=== PATIENT | female | born 1965 | race Caucasian/White ===

== ENCOUNTER → 2020-08-29 15:56 | Outpatient (CLI) | payer OTHER, SELFPAY ==
--- NOTE | ~2020-08-29 | MM_ITS ---
EXAMINATION: MM screening fredis BI w aurelio HISTORY: Screening TECHNIQUE: Craniocaudal and mediolateral oblique 3-D tomosynthesis images were obtained and synthetic 2-D images were generated. CAD analysis was submitted and interpreted. COMPARISON: Comparison to multiple prior studies sequentially, with oldest reviewed study dated 02/2015. BREAST PARENCHYMAL COMPOSITION: There are scattered areas of fibroglandular density. FINDINGS: There is no evidence of suspicious mass, calcification, or architectural distortion to sugg est malignancy in either breast. There has been no suspicious interval change. IMPRESSION: 1. No mammographic evidence of malignancy. 2. Recommend routine screening mammography in one year. BI-RADS Category 1: Negative Reviewed, dictated and finalized at location A. [facility]
== END ==
PROVIDERS: PCP Internal Medicine; Visit Provider Obstetrics & Gynecology
DX: Z12.31 Encounter for screening mammogram for malignant neoplasm of breast (principal)
CPT/HCPCS: 77063; 77067

== ENCOUNTER 2020-12-29 13:48 | Emergency (ER) | payer OTHER, SELFPAY ==
[2020-12-29] VITALS (7 sets, daily range): BP systolic 128–156; BP diastolic 86–109; PULSE 114–150; RESP 22; TEMP 36.4–37.1; O2SAT 99–100
--- NOTE | ~2020-12-29 | US_ITS ---
EXAMINATION: US pelvic complete w TV DATE: 12/29/2020 15:12 INDICATION: Abnormal uterine bleeding TECHNIQUE: Multiple transabdominal and endovaginal sonographic images of the pelvis were obtained. COMPARISON: 05/17/2017 FINDINGS: The uterus measures 6.4 x 1.9 x 3.6 cm. The endometrial complex is not visualized. There ap pears to be an approximately 18.6 x 14.8 cm fibroid. The ovaries are not visualized however no adnexa l abnormality is seen. There is no free fluid in the pelvis. IMPRESSION: 1. 18.6 cm uterine mass, likely a large fibroid. Reviewed, dictated and finalized at location A. IANCE INSTALLER
--- NOTE | 2020-12-29 14:09 | ED.FEMALEGU ---
HPI - Female Genitourinary General Chief complaint: Vaginal Bleeding Stated complaint: vaginal bleeding Time Seen by Provider: 12/29/20 14:07 Source: patient Mode of arrival: ambulatory Limitations: no limitations History of Present Illness HPI Narrative: This is a 55-year-old female that presents to the emergency department for abnormal uterine bleeding. Reports she has known history of a large fibroid uterus. She gets the Depo shot every 3 months to help control her bleeding. Reports she had her shot 1 week ago and has had intermittent heavy bleeding since then. Her corporate quality manager is Dr. Bullock. Denies fever, chest pain, shortness of breath, pelvic pain, vomiting, or dysuria. Related Data Home Medications Medication Instructions Recorded Confirmed medroxyprogesterone 150 mg/mL 150 mg IM [id number] 01/17/20 11/07/20 intramuscular suspension calcium carbonate 200 mg calcium 200 mg PO DAILY tablet 03/17/20 11/07/20 (500 mg) chewable tablet ergocalciferol (vitamin D2) 1,250 1,250 mcg PO WEEKLY cap 05/03/20 11/07/20 mcg (50,000 unit) capsule Allergies Allergy/AdvReac Type Severity Reaction Status Date / Time cefaclor Allergy Unknown Rash Verified 12/29/20 14:05 Penicillins Allergy Unknown Rash Verified 12/29/20 14:05 Sulfa (Sulfonamide Allergy Unknown Rash Verified 12/29/20 14:05 Antibiotics) tetracycline Allergy Unknown Rash Verified 12/29/20 14:05 Review of Systems Review of Systems: Narrative: CONSTITUTIONAL: Denies fever CARDIOVASCULAR: Denies chest pain RESPIRATORY: Denies dyspnea. GASTROINTESTINAL: Denies abdominal pain, nausea, vomiting GENITOURINARY: Denies dysuria All systems reviewed & are unremarkable except as noted in HPI and below [facility] Past Medical History Medical History (Updated 12/29/20 @ 16:14 by Kristi Anderson PA-C) Allergies Fibroid tumor Headache History of asthma Surgical History Surgical History (Updated 03/17/20 @ 10:09 by Renetta Luther CMA) H/O laparoscopy 1985 History of tubal ligation 1998 Family History Family History (Updated 03/17/20 @ 10:10 by Renetta Luther CMA) Mother Prediabetes Father Hypertension Grandparent Diabetes mellitus Cerebrovascular accident Ulcer Social History Social History (Updated 01/17/20 @ 13:20 by Kami Aguilar [facility]) Smoking packs per day: 1 Smoking cigarettes per day: 20.0 Smoking status: Current every day smoker Second hand tobacco smoke exposure: No Alcohol intake: never Substance use: never Substance use type: does not use Gender identity (if verbalized by the patient): Female Exam Narrative: Exam Narrative: GENERAL: Well-appearing, obese, and in no acute distress. HEAD: Normocephalic, atraumatic. EYES: EOMI. ENT: Mucous membranes moist. Oropharynx without tonsillar hypertrophy exudate or other lesions. CHEST: Clear to auscultation. No respiratory distress. No wheezes rales or rhonchi HEART: Regular rate and rhythm. No murmur heard. Normal peripheral pulses. ABDOMEN: Large, fibroid uterus, nontender, normal active bowel sounds. EXTREMITIES: Normal range of motion. No edema. SKIN: Warm, dry, no rash. NEURO: No focal deficits. Alert and oriented x3. PSYCH: Normal mood and affect PELVIC: Normal external genitalia. No blood noted in the vaginal vault Course Consultations Consultation #1: Spoke with Dr. Bullock about patient and work-up. Patient is to follow-up in clinic. Date: 12/29/20 Time: 16:11 Vital Signs Vital signs: Vital Signs Temperature 98.7 F 12/29/20 14:00 Pulse Rate 150 H 12/29/20 14:00 Respiratory Rate 22 H 12/29/20 14:00 Blood Pressure 130/102 H 12/29/20 14:00 Pulse Oximetry 100 12/29/20 14:00 Temperature 98.7 F 12/29/20 14:00 Pulse Rate 134 H 12/29/20 14:33 Respiratory Rate 22 H 12/29/20 14:00 Blood Pressure 132/109 H 12/29/20 14:33 Pulse Oximetry 100 12/29/20 14:00 MDM - Female Genitourinary MDM Narrative Medical decision toro
[2020-12-29 14:20] LABS: Basophils Percent Auto 0.3 % (0.2-1.2); Eosinophils Absolute Auto 0.1 K/mm3 (0-0.3); Eosinophils Percent Auto 1.3 % (0-4.4); Hematocrit 34.6 % (37.0-47.0); Hemoglobin 10.8 g/dL (12.0-15.0); Immature Granulocyte Absolute 0.06 K/mm3 (0.00-0.031); Immature Granulocyte Percent A 0.6 % (0-0.5); Lymphocytes Absolute Auto 3.56 K/mm3 (0.9-3.2); Lymphocytes Percent Auto 34.8 % (18.3-44.2); Mean Corpuscular HGB Conc 31.2 g/dl (32-36); Mean Corpuscular Hemoglobin 25.4 pg (26-34); Mean Corpuscular Volume 81.4 fl (80-100); Mean Platelet Volume 8.7 fl (7.4-10.4); Monocytes Absolute Auto 0.6 K/mm3 (0.1-0.6); Monocytes Percent Auto 5.8 % (2.6-8.5); Neutrophils Absolute Auto 5.9 K/mm3 (1.3-6.7); Neutrophils Percent Auto 57.2 % (45.5-73.1); Platelet Count Result 419 k/mm3 (150-375); Red Blood Count 4.25 M/mm3 (4.2-5.4); White Blood Count 10.2 K/mm3 (4.5-10.0)
--- NOTE | 2020-12-29 14:25 | ECG_ITS ---
Measurements Intervals Mallory Rate: 126 P: 11 NJ: 104 QRS: -11 QRSD: 74 T: 2 QT: 304 QTc: 442 Interpretive Statements SINUS TACHYCARDIA WITH SHORT NJ INTERVAL LOW QRS VOLTAGE IN PRECORDIAL LEADS VOLTAGE CRITERIA FOR LVH BORDERLINE T WAVE ABNORMALITY- ANT/INF LEADS BASELINE ARTIFACT- I, II, III, AVR, AVL, AVF ABNORMAL ECG Electronically Signed On 12-29-2020 14:51:11 INSTRUCTOR WARPER by Dagoberto Herrera D.O.
[2020-12-29 14:28] LABS: INR 0.9; Prothrombin Time 13.1 Seconds (11.1-14.7)
[2020-12-29 14:29] LABS: Partial Thromboplastin Time 24.1 SECONDS (22.3-36.8)
[2020-12-29 14:37] LABS: Anion Gap 3 mmol/L (8-16); Blood Urea Nitrogen 11 mg/dL (7-17); Calcium 10.7 mg/dL (8.4-10.2); Carbon Dioxide 24 mmol/L (22-30); Chloride 110 mmol/L (98-107); Estimated CRCL calculation 71 ml/min; Estimated Glomerular Filt Rate > 60; Glucose 102 mg/dL (65-105); Potassium 3.8 mmol/L (3.4-5.0); Sodium 137 mmol/L (137-145)
[2020-12-29] MEDS: SODIUM CHLORIDE 0.9% IV 1,000 ML 999 ML IV CONT (14:46)
[2020-12-29 15:39] LABS: Add Urine Microscopic? YES; Appearance Urine Clear (Clear); Bilirubin Urine Negative (Negative); Blood Urine 3+ (Negative); Color Urine Straw (Yellow); Glucose Urine UA Negative (Negative); Ketones Urine Negative (Negative); Leukocyte Esterase Ur Negative LEU/UL (Negative); Mucus Urine Rare /lpf; Nitrate Urine Negative (Negative); Protein Urine Negative (Negative); Specific Grav Ur 1.008 (1.001-1.035); Squamous Epithelial Cell Urine Few /hpf (Few); Urobilinogen Urine Negative mg/dL (<2.0); WBC Urine 0-3 /hpf
== END 2020-12-29 16:47 | disposition home or self-care (01) ==
PROVIDERS: Physician Assistant; Emergency Provider Emergency Medicine; PCP Internal Medicine
DX: D25.9 Leiomyoma of uterus, unspecified (principal); N93.9 Abnormal uterine and vaginal bleeding, unspecified; R00.0 Tachycardia, unspecified; J45.909 Unspecified asthma, uncomplicated; F17.210 Nicotine dependence, cigarettes, uncomplicated
CPT/HCPCS: 36415; 76830; 76856; 80048; 81001; 85025; 85610; 85730; 86850; 86900; 86901; 93005; 96360; 99284; J7030

== ENCOUNTER 2021-05-30 08:03 | Outpatient (CLI) | payer OTHER, SELFPAY ==
--- NOTE | 2021-05-30 08:00 | ECG_ITS ---
Measurements Intervals Dulce Rate: 109 P: 48 OK: 130 QRS: -5 QRSD: 74 T: 17 QT: 311 QTc: 420 Interpretive Statements SINUS TACHYCARDIA DELAYED PRECORDIAL R/S TRANSITION LOW QRS VOLTAGE IN PRECORDIAL LEADS VOLTAGE CRITERIA FOR LVH BORDERLINE T WAVE ABNORMALITY- ANTERIOR LEADS BASELINE ARTIFACT- I, III, AVR, AVL, AVF ABNORMAL ECG Electronically Signed On 05-30-2021 8:45:32 CDT by Dagoberto Herrera D.O.
== END 2021-05-30 08:04 | disposition home or self-care (01) ==
LOC: ANHSURGERY 08:05
PROVIDERS: PCP Internal Medicine; Visit Provider Obstetrics & Gynecology
DX: Z01.818 Encounter for other preprocedural examination (principal); F17.200 Nicotine dependence, unspecified, uncomplicated; D25.9 Leiomyoma of uterus, unspecified; R94.31 Abnormal electrocardiogram [ECG] [EKG]
CPT/HCPCS: 36415; 86850; 86900; 86901; 93005

== ENCOUNTER 2021-06-01 14:17 | Inpatient (IN) | payer OTHER, SELFPAY ==
[2021-05-25 16:03] VITALS: BMI 34.1
--- NOTE | 2021-05-31 16:23 | PM.IMHP ---
H&P: HPI History of Present Illness Date/Time: 05/31/21 16:23 Patient is a 55 y/o A1 with a long standing history of fibroids and menorrhagia. Patient has been on the depo-provera shot for 4 years for control of bleeding. Patient reports fibroids have grown in size and affecting urination, bowel movements and everyday activities. Patient also reports bleeding is getting heavier despite depo shot. Chief Complaint: fibroids Review of Systems Constitutional: Constitutional: Reports fatigue and Reports lethargy PMFSH Past Medical History Medical History Allergies Fibroid tumor Headache History of asthma Surgical History Surgical History H/O laparoscopy 1985 History of tubal ligation 1998 Family History Family History Mother Prediabetes Father Hypertension Grandparent Diabetes mellitus Cerebrovascular accident Ulcer Social History Social History Smoking packs per day: 1 Smoking cigarettes per day: 20.0 Years smoked: 35 Smoking pack-years: 35.00 Smoking status: Current every day smoker Tobacco type: cigarettes Second hand tobacco smoke exposure: No Alcohol intake: never Substance use: never Substance use type: does not use Gender identity (if verbalized by the patient): Female Spiritual care concerns: No Meds Home Medications and Allergies Home Medications Medication Instructions Recorded Confirmed Type fluticasone propionate 50 2 spray NASAL DAILY #9.9 ml 03/17/20 05/25/21 Rx mcg/actuation nasal spray,suspension albuterol sulfate 90 mcg/actuation 2 puff INHALATION Q4H PRN #8.5 gm 04/19/21 05/25/21 Rx aerosol inhaler budesonide 180 mcg/actuation 2 inh INHALATION BID #180 05/07/21 05/25/21 Rx breath activated powder inhaler inhalation ergocalciferol (vitamin D2) 1,250 50,000 unit PO 2XW cap 05/14/21 05/25/21 History mcg (50,000 unit) capsule ferrous sulfate 325 mg (65 mg 325 mg PO BID 05/14/21 05/25/21 History iron) tablet Allergies Allergy/AdvReac Type Severity Reaction Status Date / Time Cephalosporins Allergy Intermediate Rash Verified 05/25/21 15:59 Penicillins Allergy Intermediate Rash Verified 05/25/21 15:18 Sulfa (Sulfonamide Allergy Intermediate Rash Verified 05/25/21 15:18 Antibiotics) tetracycline Allergy Intermediate Rash Verified 05/25/21 15:18 Exam Const: General: well groomed Nutritional Appearance: obese Orientation/consciousness: patient oriented x3 Resp: Auscultation: clear to auscultation bilaterally Cardio: Rate: regular rate Rhythm: regular rhythm GI: GI Palp: Yes Palpable mass present (uterus palpable to above umbilicus) Auscultation: normal bowel sounds : External Female Exam: normal external appearance Speculum Exam - Vagina: normal appearance of the vagina Assessment and Plan Assessment and plan (1) Fibroid tumor: Code(s): D21.9 - Benign neoplasm of connective and other soft tissue, unspecified Status: Acute Assessment and Plan: scheduled for a TERESA with bilateral salpingectomy risk and benefits reviewed with patient in detail including bleeding infection, trauma and damage to surrounding organs. (2) Anemia: Qualifiers: Anemia type: unspecified type Qualified Code(s): D64.9 - Anemia, unspecified Code(s): D64.9 - Anemia, unspecified Status: Acute
[2021-06-01] VITALS (17 sets, daily range): BP systolic 119–155; BP diastolic 75–98; PULSE 80–102; RESP 15–20; TEMP 36.8–37.6; O2SAT 92–100
[2021-06-01] MEDS: KETOROLAC 15 MG/ML VIAL (*BKC) IV PUSH (11:11)
[2021-06-01] MEDS: ACETAMINOPHEN 500 MG TABLET 1000 MG PO (11:11)
[2021-06-01 11:16] LABS: Hematocrit 47.8 % (37.0-47.0); Hemoglobin 13.7 g/dL (12.0-15.0)
--- NOTE | 2021-06-01 11:21 | WPDANESEPPF ---
Anes - Initial Pre Proc Eval Procedure: Operation Date: 06/01/21 12:00 Proposed Procedures p Open Total Abdominal Hysterectomy With Bilateral Salpingo Oophorectomy - Alan Bullock MD Date/Time: 06/01/21 11:21 Surgeon: Alan Bullock MD Pre Op Diagnosis: menorrhagia, fibroids Patient Data Age: 55 Gender: F Height: 1.55 m Weight: 82.8 kg Allergies Allergy/AdvReac Type Severity Reaction Status Date / Time Penicillins Allergy Severe Rash Verified 06/01/21 10:43 Cephalosporins Allergy Mild Rash Verified 06/01/21 10:43 Sulfa (Sulfonamide Allergy Mild Rash Verified 06/01/21 10:43 Antibiotics) tetracycline Allergy Mild Rash Verified 06/01/21 10:43 Home Medications Medication Instructions Recorded Confirmed Type fluticasone propionate 50 2 spray NASAL DAILY #9.9 ml 03/17/20 06/01/21 Rx mcg/actuation nasal spray,suspension albuterol sulfate 90 mcg/actuation 2 puff INHALATION Q4H PRN #8.5 gm 04/19/21 06/01/21 Rx aerosol inhaler budesonide 180 mcg/actuation 2 inh INHALATION BID #180 05/07/21 06/01/21 Rx breath activated powder inhaler inhalation ergocalciferol (vitamin D2) 1,250 50,000 unit PO 2XW cap 05/14/21 06/01/21 History mcg (50,000 unit) capsule ferrous sulfate 325 mg (65 mg 325 mg PO BID 05/14/21 06/01/21 History iron) tablet Laboratory Tests 06/01/21 11:11 Hgb Pending Hct Pending Patient hx anesthesia problems: none Family hx anesthesia problems: none PMFSH Past Medical History Medical History Allergies Fibroid tumor Headache History of asthma Surgical History Surgical History H/O laparoscopy 1985 History of tubal ligation 1998 Family History Family History Mother Prediabetes Father Hypertension Grandparent Diabetes mellitus Cerebrovascular accident Ulcer Social History Social History Smoking packs per day: 1 Smoking cigarettes per day: 20.0 Years smoked: 35 Smoking pack-years: 35.00 Smoking status: Current every day smoker Tobacco type: cigarettes Second hand tobacco smoke exposure: No Alcohol intake: never Substance use: never Substance use type: does not use Gender identity (if verbalized by the patient): Female Spiritual care concerns: No Anes - Eval Final PreProcedure Day of Procedure 06/01/21 11:21 Patient weight: obese Heart: regular rate and rhythm Lungs: clear to auscultation Airway: Mallampati scale class II Neurological: alert and oriented Last oral intake: >/= 8 hours ASA classification: III Emergent: no Anesthetic plan: proceed Anesthesia type and monitoring: general ETT and standard monitoring Informed Consent: The patient's anesthetic plan and its attendant risks and benefits were discussed with the patient/family/POA. Questions were solicited and answers provided to the satisfaction of the patient/family/POA.
[2021-06-01] MEDS: LACTATED RINGERS 1,000 ML 30 ML IV CONT ×2 (11:29→14:35)
--- NOTE | 2021-06-01 11:47 | WPDHPUPDATE1 ---
History and Physical Update Update Date/Time: 06/01/21 11:47 History and Physical has been reviewed, including an updated exam of the patient. There are NO changes in the patient's condition. Patient is scheduled for a TERESA with bilateral salpingoopherectomy. Risks, benefits, and alternatives have been discussed and questions answered. Patient agrees to proceed with procedure.
--- NOTE | 2021-06-01 12:03 | SUR.PREOP ---
Dr. Bullock is aware of patient's mild rash with previous cephalosporin use. OK to give ancef 2gm.
[2021-06-01] MEDS: ceFAZolin 2 GM/D5W 50 ML 2 GM/50 ML BAG IVPB (12:29)
[2021-06-01] MEDS: fentaNYL CITRATE INJ (*CRX) 100 MCG/2 ML VIAL 25 MCG IV PUSH ×2 (17:19→17:25)
[2021-06-01] MEDS: DEXTROSE 5%/LACTATED RINGERS 1,000 ML 125 ML IV CONT (18:52)
[2021-06-01] MEDS: KETOROLAC 30 MG/ML VIAL (*BKC) IV PUSH (18:53)
[2021-06-01] MEDS: ESTRADIOL 7 DAY 0.05 MG PATCH TRANSDERM (18:56)
[2021-06-01] MEDS: SENNA/DOCUSATE SODIUM TABLET 2 TAB PO (22:13)
[2021-06-02] VITALS (7 sets, daily range): BP systolic 110–149; BP diastolic 66–98; PULSE 95–111; RESP 16–20; TEMP 35.8–37.2; O2SAT 97–98
[2021-06-02] MEDS: KETOROLAC 30 MG/ML VIAL (*BKC) IV PUSH ×3 (00:45→12:31)
[2021-06-02 05:05] LABS: Basophils Percent Auto 0.2 % (0.2-1.2); Eosinophils Percent Auto 0.1 % (0-4.4); Hemoglobin 11.4 g/dL (12.0-15.0); Immature Granulocyte Absolute 0.06 K/mm3 (0.00-0.031); Immature Granulocyte Percent A 0.4 % (0-0.5); Lymphocytes Absolute Auto 2.31 K/mm3 (0.9-3.2); Lymphocytes Percent Auto 16.4 % (18.3-44.2); Mean Corpuscular HGB Conc 29.2 g/dl (32-36); Mean Corpuscular Hemoglobin 23.6 pg (26-34); Mean Corpuscular Volume 80.7 fl (80-100); Mean Platelet Volume 8.9 fl (7.4-10.4); Monocytes Absolute Auto 1.3 K/mm3 (0.1-0.6); Monocytes Percent Auto 9.1 % (2.6-8.5); Neutrophils Absolute Auto 10.4 K/mm3 (1.3-6.7); Neutrophils Percent Auto 73.8 % (45.5-73.1); Platelet Count Result 325 k/mm3 (150-375); Red Blood Count 4.83 M/mm3 (4.2-5.4); Red Cell Distribution Width 25.2 % (11.5-14.5); White Blood Count 14.1 K/mm3 (4.5-10.0)
[2021-06-02 05:16] LABS: Anion Gap 5 mmol/L (8-16); Blood Urea Nitrogen 7 mg/dL (7-17); Calcium 9.3 mg/dL (8.4-10.2); Carbon Dioxide 22 mmol/L (22-30); Chloride 111 mmol/L (98-107); Estimated CRCL calculation 69 ml/min; Estimated Glomerular Filt Rate > 60; Glucose 102 mg/dL (65-110); Potassium 3.9 mmol/L (3.4-5.0); Sodium 138 mmol/L (137-145)
[2021-06-02] MEDS: SIMETHICONE 80 MG TAB.CHEW PO (06:49)
--- NOTE | 2021-06-02 10:44 | PM.GYNPNOP ---
BATCH PLANT SUPERVISOR - A/P Postoperative Procedures: Procedures Operation Date: 06/01/21 12:00 Actual Procedure Side Surgeon p Open Total Abdominal Hysterectomy With Bilateral Salpingo Oophorectomy Bilateral Alan Bullock MD Postoperative day: 1 Postoperative status: doing well Postoperative plan: routine post-op care Time Spent With Patient Time: Total time spent is greater than 50% in coordination of care (as documented) at patient's floor/unit and/or counseling patient: Time with patient: less than 15 minutes BATCH PLANT SUPERVISOR- PN:Subj Post-Op Subjective Date/time seen: 06/02/21 10:44 Subjective: patient has no complaints and pain is well controlled Exam Narrative: inc c/d/i bandage removed abdomen soft, nt BATCH PLANT SUPERVISOR - PN: Obj Data Vital Signs Vital Signs: Vital Signs - 24 hr 06/01/21 11:30 06/01/21 14:23 06/01/21 14:40 Temperature 99.6 F 99.0 F Pulse Rate 102 H 94 90 Respiratory Rate 20 18 18 Blood Pressure 130/86 119/77 133/75 Pulse Oximetry 99 92 97 06/01/21 14:55 06/01/21 15:10 06/01/21 15:25 Temperature Pulse Rate 86 90 84 Respiratory Rate 18 18 18 Blood Pressure 130/77 129/82 128/89 Pulse Oximetry 97 94 94 06/01/21 15:40 06/01/21 15:55 06/01/21 16:10 Temperature Pulse Rate 94 84 80 Respiratory Rate 18 16 16 Blood Pressure 134/76 130/83 127/80 Pulse Oximetry 94 94 94 06/01/21 16:25 06/01/21 16:40 06/01/21 16:55 Temperature Pulse Rate 93 99 94 Respiratory Rate 18 18 15 Blood Pressure 136/79 138/84 140/83 Pulse Oximetry 96 95 96 06/01/21 17:10 06/01/21 17:25 06/01/21 17:40 Temperature Pulse Rate 94 90 88 Respiratory Rate 20 20 16 Blood Pressure 119/82 147/88 H 145/81 H Pulse Oximetry 98 96 98 06/01/21 17:55 06/01/21 19:25 06/02/21 00:45 Temperature 98.2 F 98.3 F Pulse Rate 92 86 109 H Respiratory Rate 16 16 20 Blood Pressure 146/89 H 155/98 H 149/98 H Pulse Oximetry 96 100 97 06/02/21 04:50 06/02/21 06:57 Temperature 98.9 F 97.1 F L Pulse Rate 99 95 Respiratory Rate 18 16 Blood Pressure 141/82 H 148/93 H Pulse Oximetry 97 98 Intake/Output Intake/Output: Intake & Output 05/30/21 05/31/21 06/01/21 06/02/21 23:59 23:59 23:59 23:59 Intake Total 450 250 Output Total 265 1300 Balance 185 -1050 Meds/Results Medications: Active Medications Generic Name Dose Route Start Last Admin Trade Name Freq PRN Reason Stop Dose Admin Hydrocodone Bitart/Acetaminophen 1 tab 06/01/21 14:17 Hydrocodone/Acetaminophen (*Crx) 5-325 Mg Tablet PO Q3H PRN Pain Rated 5 or Less Albuterol 2 puff 06/01/21 14:23 Albuterol Sulfate (*Sp) Aerosol 1 Puff INHALATION Q4H PRN shortness of breath or wheezing Budesonide 2 puff 06/01/21 20:00 06/01/21 21:35 Budesonide 180 Mcg/Puff Flexhaler INHALATION Not Given Q12HRT NUVIA Estradiol 0.05 mg 06/01/21 14:20 06/01/21 18:56 Estradiol 7 Day 0.05 Mg Patch TRANSDERM 0.05 mg Q7D NUVIA Administration Lactated Ringer's 1,000 mls @ 30 mls/hr 06/01/21 11:25 06/01/21 14:35 Lr - Lactated Ringers Iv IV CONT Infused .Q24H NUVIA Infusion Dextrose/Lactated Ringer's 1,000 mls @ 125 mls/hr 06/01/21 14:20 06/01/21 18:52 Dextrose 5%/Lactated Ringers IV CONT 125 mls/hr .Q8H NUVIA Administration Ibuprofen 600 mg 06/01/21 14:17 Ibuprofen 600 Mg Tablet PO Q6H PRN Cramping Ketorolac Tromethamine 30 mg 06/01/21 14:17 06/02/21 06:49 Ketorolac 30 Mg/Ml Vial (*Bkc) IV PUSH 06/06/21 14:18 30 mg Q6H PRN Administration Pain Rated 4-6 Metoclopramide HCl 10 mg 06/01/21 14:17 Metoclopramide Hcl Inj 10 Mg/2 Ml Vial IV PUSH Q6H PRN Nausea Morphine Sulfate 4 mg 06/01/21 14:17 Morphine Sulfate (*Crx) 4 Mg/Ml Inj IV PUSH Q4H PRN Pain Rated 7-10 Naloxone HCl 0.1 mg 06/01/21 14:17 Naloxone Hcl 0.4 Mg/Ml Vial IV PUSH Q2M PRN Respiratory rate less than 10 Ondansetron HCl 4 mg 06/01/21 14:17 Ondansetron Inj 4 Mg/2 Ml Vial IV
[2021-06-02] MEDS: HYDROcodone/acetaminophen (*CRX) 5-325 MG TABLET 1 TAB PO ×2 (18:49→23:24)
[2021-06-02] MEDS: SENNA/DOCUSATE SODIUM TABLET 2 TAB PO (18:50)
--- NOTE | 2021-06-02 19:57 | PCRCNOTE ---
Pt reported that she used her own inhaler at 17:00.
[2021-06-03] MEDS: HYDROcodone/acetaminophen (*CRX) 5-325 MG TABLET 1 TAB PO ×2 (07:10→10:30)
--- NOTE | 2021-06-03 07:21 | PM.GYNPNOP ---
MOLD TOOLER - A/P Postoperative Procedures: Procedures Operation Date: 06/01/21 12:00 Actual Procedure Side Surgeon p Open Total Abdominal Hysterectomy With Bilateral Salpingo Oophorectomy Bilateral Alan Bullock MD Postoperative day: 2 Postoperative status: doing well Postoperative plan: routine post-op care and discharge Time Spent With Patient Time: Total time spent is greater than 50% in coordination of care (as documented) at patient's floor/unit and/or counseling patient: Time with patient: less than 15 minutes MOLD TOOLER- PN:Subj Post-Op Subjective Date/time seen: 06/03/21 07:21 Subjective: patient has no complaints, pain is well controlled and patient is tolerating oral intake Exam Narrative: Inc c/d/i ; nt Const: General: no acute distress MOLD TOOLER - PN: Obj Data Vital Signs Vital Signs: Vital Signs - 24 hr 06/02/21 07:45 06/02/21 11:55 06/02/21 16:06 Temperature 98.5 F 97.1 F L Pulse Rate 101 H 111 H Respiratory Rate 18 16 Blood Pressure 138/81 116/74 110/66 Pulse Oximetry 98 06/02/21 20:15 Temperature 96.5 F L Pulse Rate 108 H Respiratory Rate 18 Blood Pressure 126/71 Pulse Oximetry 98 Intake/Output Intake/Output: Intake & Output 05/31/21 06/01/21 06/02/21 06/03/21 23:59 23:59 23:59 23:59 Intake Total 450 250 Output Total 265 1300 Balance 185 -1050 Meds/Results Medications: Active Medications Generic Name Dose Route Start Last Admin Trade Name Freq PRN Reason Stop Dose Admin Acetaminophen 1,000 mg 06/02/21 14:26 Acetaminophen 500 Mg Tablet PO Q6H PRN Mild Pain (1-3) or Fever Hydrocodone Bitart/Acetaminophen 1 tab 06/01/21 14:17 06/03/21 07:10 Hydrocodone/Acetaminophen (*Crx) 5-325 Mg Tablet PO 1 tab Q3H PRN Administration PAIN 4-6 Albuterol 2 puff 06/01/21 14:23 Albuterol Sulfate (*Sp) Aerosol 1 Puff INHALATION Q4H PRN shortness of breath or wheezing Budesonide 2 puff 06/01/21 20:00 06/02/21 20:21 Budesonide 180 Mcg/Puff Flexhaler INHALATION Not Given Q12HRT NUVIA Estradiol 0.05 mg 06/01/21 14:20 06/01/21 18:56 Estradiol 7 Day 0.05 Mg Patch TRANSDERM 0.05 mg Q7D NUVIA Administration Lactated Ringer's 1,000 mls @ 30 mls/hr 06/01/21 11:25 06/01/21 14:35 Lr - Lactated Ringers Iv IV CONT Infused .Q24H NUVIA Infusion Ibuprofen 600 mg 06/01/21 14:17 Ibuprofen 600 Mg Tablet PO Q6H PRN Cramping Ketorolac Tromethamine 30 mg 06/01/21 14:17 06/02/21 12:31 Ketorolac 30 Mg/Ml Vial (*Bkc) IV PUSH 06/06/21 14:18 30 mg Q6H PRN Administration Pain Rated 4-6 Metoclopramide HCl 10 mg 06/01/21 14:17 Metoclopramide Hcl Inj 10 Mg/2 Ml Vial IV PUSH Q6H PRN Nausea Morphine Sulfate 4 mg 06/01/21 14:17 Morphine Sulfate (*Crx) 4 Mg/Ml Inj IV PUSH Q4H PRN Pain Rated 7-10 Naloxone HCl 0.1 mg 06/01/21 14:17 Naloxone Hcl 0.4 Mg/Ml Vial IV PUSH Q2M PRN Respiratory rate less than 10 Ondansetron HCl 4 mg 06/01/21 14:17 Ondansetron Inj 4 Mg/2 Ml Vial IV PUSH Q6H PRN Nausea Senna/Docusate Sodium 2 tab 06/01/21 21:00 06/02/21 18:50 Senna/Docusate Sodium Tablet PO 2 tab HS NUVIA Administration Simethicone 80 mg 06/01/21 14:17 06/02/21 06:49 Simethicone 80 Mg Tab.Chew PO 80 mg Q2H PRN Administration Gas Labs CBC & Chem 7: 06/02/21 04:47 06/02/21 04:47
[2021-06-03 08:03] VITALS: BP 141/93; PULSE 93; RESP 18; TEMP 36.5; O2SAT 97
--- NOTE | 2021-06-07 10:48 | OP_ITS ---
DATE OF PROCEDURE: PREOPERATIVE DIAGNOSIS: Uterine fibroids. POSTOPERATIVE DIAGNOSIS: Uterine fibroids. PROCEDURE PERFORMED: Total abdominal hysterectomy with bilateral salpingo-oophorectomy. ANESTHESIA: General. COMPLICATIONS: None. ESTIMATED BLOOD LOSS: 270 cc. URINE OUTPUT: 200 cc of clear urine. DESCRIPTION OF PROCEDURE: The patient was taken to the operating room with IV running, prepared and draped in a normal sterile fashion and placed in the supine position. An incision was made into the abdomen down through the subcutaneous tissue, muscular fascia, and peritoneum. Once inside the abdominal cavity, the large fibroid uterus was exteriorized. The round ligaments on either side were identified and individually dissected and ligated with the LigaSure device. This allowed us to then create a bladder flap by both blunt and sharp dissection. The fallopian tube and ovarian ligament were isolated with the broad ligament and the infundibulopelvic ligament was transected and ligated with the LigaSure device. The uterine vessels on either side were then skeletonized and carefully dissected, the bladder flap anteriorly. Posteriorly, the peritoneum was dissected down toward the uterosacral ligament. The LigaSure clamps were then placed at each isthmic portion of the cervical body junction where the uterine arteries joined the uterus. These were clamped, ligated, and divided using LigaSure and 0 Vicryl suture. The remainder of the uterus was then removed by the clamp cut ligation technique using 0 Vicryl suture on all major pedicles. In removal of the uterus, the vaginal cuff was closed in the usual manner. Hemostasis was then inspected and secured throughout the entire area. The cuff was closed with 0 Vicryl suture in a running locked fashion. The abdomen was explored for lap sponges. Lap count was correct x2. The patient tolerated the operation. There were no complications. The Huffman catheter was inspected. Clear urine was noted. The fascia was then closed with 0 PDS in a running continuous fashion, and the subcutaneous tissue was irrigated and closed with 3-0 plain gut and the skin was closed with leno. Hemostasis was secured throughout the entire layers, and the patient was taken to the recovery room in stable condition. Maritza I MT: [facility]
--- NOTE | 2021-08-06 12:24 | P.DS_ITS ---
DS: Admitting Diagnosis Discharge Date 06/03/21 Admitting Diagnosis fibroids DS: Summary Hospital Course Hospital Course: 55y/o admitted for hysterectomy for fibroids. See operative note for details. Patient admitted for pain control and discharged home on postop day 2. Patient received prn oral pain meds for [place] 5/325 one oral every 4 hours as needed. follow up in 1 week for incisions check and staple removal Time Spent with Patient Time attestation: Total time spent providing and/or coordinating discharge services: DS: Data Data Completed and Pending Completed studies during hospitalization: Pending at discharge 06/01/21 13:54 Surgical [PTH] Routine Discharge Plan Discharge Attending physician on discharge: Alan Bullock Discharging Clinician: Caity Carroll Anticipated Discharge Date/Time: 06/03/21 10:45 Patient Disposition: Home, Self-Care Activity: may shower, may drive after 2 weeks and pelvic rest Diet: regular Wound Care Instructions: incision open to air Patient Instructions: Hysterectomy (DC) Stand Alone Forms: General Discharge Information Follow-up/Referrals: Alan Bullock MD [Physician] - Call for Appointment (follow up in 10 days post op for staple removal-bring staple remover, benzoine, and steri strips) Discharge Medications: New hydrocodone-acetaminophen 5-325 mg Tablet 1 tablet PO Q3H PRN (Reason: Pain Rated 5 Or Less) Qty: 25 RF: 0 estradiol [Climara] 0.05 mg/24 hr Patch Weekly 0.05 mg transdermal Q7D Qty: 12 RF: 4 Continued Pulmicort Flexhaler 180 mcg/actuation aerosol powdr breath activated 2 inh INHALATION BID Qty: 180 RF: 2 fluticasone propionate [Flonase Allergy Relief] 50 mcg/actuation spray,suspension 2 spray NASAL DAILY Qty: 9.9 RF: 1 albuterol sulfate [Ventolin HFA] 90 mcg/actuation HFA aerosol inhaler 2 puff INHALATION Q4H PRN (Reason: shortness of breath or wheezing) Qty: 8.5 RF: 1 ergocalciferol (vitamin D2) 1,250 mcg (50,000 unit) capsule 50,000 unit PO 2XW RF: 0 ferrous sulfate 325 mg (65 mg iron) tablet 325 mg PO BID RF: 0 Date of admission: 06/01/21 14:17 Primary Care Provider: Parth Tapia Admitting Provider: Alan Bullock Attending physician on admission: Caity Carroll Condition: Stable
== END 2021-06-03 11:01 | disposition home or self-care (01) | DRG 743 ==
LOC: ANHOB2 06-02 10:48
PROVIDERS: Admitting Provider Obstetrics & Gynecology; PCP Internal Medicine; Visit Provider Obstetrics & Gynecology Gynecology
PROC: 0UT94ZZ Resection of Uterus, Percutaneous Endoscopic Approach (ICD-10-PCS; principal; 2021-06-01 12:00)
DX: D25.9 Leiomyoma of uterus, unspecified (principal); F17.210 Nicotine dependence, cigarettes, uncomplicated; D64.9 Anemia, unspecified
CPT/HCPCS: 36415; 80048; 85014; 85018; 85025; 86850; 86900; 86901; 88307; 93005; A9270; J0690; J1100; J1170; J1885; J2250; J2405; J2704; J2710; J3010; J7120; J7121

== ENCOUNTER → 2021-08-04 01:13 | Outpatient (CLI) | payer OTHER, SELFPAY ==
[2021-08-04 18:06] LABS: SARS-CoV-2 RNA PCR Negative
== END ==
PROVIDERS: PCP Internal Medicine; Visit Provider Clinical Nurse Specialist
DX: R05.9 Cough, unspecified (principal); Z20.822 Contact with and (suspected) exposure to COVID-19
CPT/HCPCS: C9803; U0003; U0005

== ENCOUNTER → 2021-10-02 03:01 | Outpatient (CLI) | payer OTHER, SELFPAY ==
[2021-10-02 20:28] LABS: SARS-CoV-2 RNA PCR Positive
== END ==
PROVIDERS: PCP Internal Medicine; Visit Provider Nurse Practitioner
DX: U07.1 COVID-19 (principal)
CPT/HCPCS: C9803; U0003; U0005

== ENCOUNTER → 2021-12-01 10:58 | Outpatient (CLI) | payer OTHER, SELFPAY ==
--- NOTE | ~2021-12-01 | MM_ITS ---
EXAMINATION: MM screening fredis BI w aurelio HISTORY: Screening TECHNIQUE: Craniocaudal and mediolateral oblique 3-D tomosynthesis images were obtained and synthetic 2-D images were generated. CAD analysis was submitted and interpreted. COMPARISON: Comparison to multiple prior studies sequentially, with oldest reviewed study dated 02/2015. BREAST PARENCHYMAL COMPOSITION: There are scattered areas of fibroglandular density. FINDINGS: There is no evidence of suspicious mass, calcification, or architectural distortion to sugg est malignancy in either breast. There has been no suspicious interval change. IMPRESSION: 1. No mammographic evidence of malignancy. 2. Recommend routine screening mammography in one year. BI-RADS Category 1: Negative Reviewed, dictated and finalized at location A. NCIAL OPERATIONS CLERK
== END ==
PROVIDERS: PCP Internal Medicine; Visit Provider Obstetrics & Gynecology Gynecology
DX: Z12.31 Encounter for screening mammogram for malignant neoplasm of breast (principal)
CPT/HCPCS: 77063; 77067

== ENCOUNTER → 2022-05-23 08:18 | Outpatient (CLI) | payer BC, SELFPAY ==
--- NOTE | ~2022-05-23 | CT_ITS ---
EXAMINATION: CT abdomen pelvis wo/w con DATE: 05/23/2022 09:04 INDICATION: Gross hematuria. History of hysterectomy. TECHNIQUE: Computed tomography (CT) of the abdomen and pelvis was performed without and with 130 cc O mnipaque 350 intravenous contrast. The dose-length product was 2204.46 mGy-cm. Automated exposure con trol and iterative reconstruction technique were employed. COMPARISON: None. FINDINGS: Lung bases are unremarkable. No significant pleural or pericardial effusion. Heart size nor mal. Mild atherosclerosis without aneurysm. No lymphadenopathy. There are nonobstructing left renal s tones. No ureteral stones or hydronephrosis. Bladder is unremarkable. The kidneys are normal postcont rast without mass. Ureters are normal in course and caliber. There are multiple ventral hernias, the superior most which contains fat and the inferior hernia contains nonobstructed small bowel. Nonobstr uctive bowel gas pattern. Normal appendix. No acute osseous abnormality. Mild lumbar spondylosis. IMPRESSION: 1. Nonobstructing left nephrolithiasis. 2: Multiple ventral hernias below the umbilicus, with the 2 inferior most containing nonobstructed sm all bowel. Reviewed, dictated and finalized at location A. IMPRESSION: 1. Nonobstructing left nephrolithiasis. 2: Multiple ventral hernias below the umbilicus, with the 2 inferior most conta ining nonobstructed small bowel.
[2022-05-23 08:41] LABS: Estimated Glomerular Filt Rate > 60
== END ==
PROVIDERS: PCP Internal Medicine; Visit Provider Clinical Nurse Specialist
DX: R31.9 Hematuria, unspecified (principal); N20.0 Calculus of kidney; K43.9 Ventral hernia without obstruction or gangrene
CPT/HCPCS: 74178; Q9967

== ENCOUNTER → 2022-06-22 10:49 | Outpatient (CLI) | payer BC, SELFPAY ==
--- NOTE | ~2022-06-22 | DEXA_ITS ---
Bone Density Report Name: KAYKAY VERGARA Age: 56 Sex: Female Ethnicity: White Date of : 1965 Indication: monitoring treatment; asthma or emphysema; hysterectomy; postmenopausal Referring Provider: RAMOS GOMES Study: Bone densitometry was performed. Exam Date: June 22, 2022 Accession number: [id number] Bone Density: Region BMD T-score Z-score Classification AP Spine (L1, L2, L3) 1.125 1.0 2.0 Normal Femoral Neck (Left) 0.804 -0.4 0.6 Normal Total Hip (Left) 1.006 0.5 1.2 Normal Femoral Neck (Right) 0.788 -0.6 0.5 Normal Total Hip (Right) 0.852 -0.7 -0.1 Normal Total Hip Mean 0.929 -0.1 0.6 Normal World Health Organization criteria for BMD impression classify patients as: Normal (T-score at or above -1.0), Osteopenia (T-score between -1.0 and -2.5), or Osteoporosis (T-score at or below -2.5). Previous Exams: Region Exam Age BMD T-score BMD Change BMD Change Date g/cm2 vs Baseline vs Previous AP Spine(L1, L2, L3) 06/22/2022 56 1.125 1.0 0.066* 0.066* 12/05/2018 53 1.059 0.4 Total Hip(Left) 06/22/2022 56 1.006 0.5 0.017 0.017 12/05/2018 53 0.988 0.4 Total Hip(Right) 06/22/2022 56 0.852 -0.7 -0.040* -0.040* 12/05/2018 53 0.893 -0.4 *Denotes significance at 95% confidence level, LSC for AP Spine = 0.022 g/cm2, LSC for Total Hip = 0.027 g/cm2 Clinical Information Provided by Patient: Smokes Is being treated for osteoporosis Has used the following medications: HRT (i.e. estrogen/hormone therapy), Vitamin D, RAYSA Has the following medical conditions: Asthma or Emphysema, Hysterectomy Patient maximum height was 61 Menopause Age: 55 No regular weight bearing exercise Onset of menses at age 13.5 Number of children 3 Impression: The patient has normal bone mass. The patient has risk factors, including: smoking. The BMD for the Total Hip(Right) decreased, changing by -0.040 since the last DXA exam. Discussion: SIGNIFICANT BONE LOSS OBSERVED. Adherence to therapy (including calcium and vitamin D intake) should be assessed. If compliance is not a factor, review management and exclusion of secondary causes of bone loss. It is important to ask patients whether they are taking their medications and to encourage continued and appropriate compliance with their osteoporosis therapies to reduce fracture risk. It is also important to review their risk factors and encourage appropriate calcium and vitamin D intakes, exercise, fall prevention and other lifestyle measures. Follow-Up: Consider a repeat BMD a
== END ==
PROVIDERS: PCP Internal Medicine; Visit Provider Obstetrics & Gynecology Gynecology
DX: Z78.0 Asymptomatic menopausal state (principal)
CPT/HCPCS: 77080

== ENCOUNTER → 2022-06-22 10:54 | Outpatient (CLI) | payer BC, SELFPAY ==
--- NOTE | ~2022-06-22 | XR_ITS ---
EXAM: XR abdomen/kub 1V DATE: 06/22/2022 11:29 HISTORY: Calcium kidney stone . COMPARISON: CT abdomen pelvis 05/15/2022. FINDINGS: Clear lung bases. Normal bowel gas pattern. No organomegaly. 5 mm stones in the left lower pole. Degenerative change in the lower lumbar spine. IMPRESSION: Stable left nephrolithiasis. Reviewed, dictated and finalized at location K.
== END ==
PROVIDERS: PCP Internal Medicine; Visit Provider Urology
DX: N20.0 Calculus of kidney (principal)
CPT/HCPCS: 74018

== ENCOUNTER → 2023-02-08 08:50 | Outpatient (CLI) | payer BC, SELFPAY ==
--- NOTE | ~2023-02-08 | MM_ITS ---
EXAMINATION: MM screening fredis BI w aurelio HISTORY: Screening mammogram TECHNIQUE: Craniocaudal and mediolateral oblique 3-D tomosynthesis images were obtained and synthetic 2-D images were generated. CAD analysis was submitted and interpreted. COMPARISON: 12/01/2021, 08/29/2020, 12/05/2018, 11/08/2017 BREAST PARENCHYMAL COMPOSITION:There are scattered areas of fibroglandular density. FINDINGS: No suspicious mass, calcification, or architectural distortion are identified in either patel ast to suggest malignancy. There has been no suspicious interval change. IMPRESSION: No mammographic evidence of malignancy. Recommend routine screening mammography in one year. BI-RADS Category 1: Negative Reviewed, dictated and finalized at location .
== END ==
PROVIDERS: PCP Internal Medicine; Visit Provider Obstetrics & Gynecology Gynecology
DX: Z12.31 Encounter for screening mammogram for malignant neoplasm of breast (principal)
CPT/HCPCS: 77063; 77067

== ENCOUNTER 2024-03-13 09:59 | Outpatient (CLI) | payer BC, SELFPAY ==
--- NOTE | ~2024-03-13 | MM_ITS ---
EXAMINATION: MM screening fredis BI w aurelio HISTORY: Screening TECHNIQUE: Craniocaudal and mediolateral oblique 3-D tomosynthesis images were obtained and synthetic 2-D images were generated. CAD analysis was submitted and interpreted. COMPARISON: Comparison to multiple prior studies sequentially, with oldest reviewed study dated 02/2022. BREAST PARENCHYMAL COMPOSITION: Not dense: There are scattered areas of fibroglandular density. FINDINGS: There is no evidence of suspicious mass, calcification, or architectural distortion to sugg est malignancy in either breast. There has been no suspicious interval change. IMPRESSION: 1. No mammographic evidence of malignancy. 2. Recommend routine screening mammography in one year. BI-RADS Category 1: Negative Reviewed, dictated and finalized at location A.
== END 2024-03-13 10:00 ==
PROVIDERS: PCP Internal Medicine; Visit Provider Obstetrics & Gynecology Gynecology
DX: Z12.31 Encounter for screening mammogram for malignant neoplasm of breast (principal)
CPT/HCPCS: 77063; 77067

== ENCOUNTER 2025-03-19 09:01 | Outpatient (CLI) | payer BC, SELFPAY ==
--- NOTE | ~2025-03-19 | MM_ITS ---
EXAMINATION: MM screening fredis BI w aurelio HISTORY: Screening TECHNIQUE: Craniocaudal and mediolateral oblique 3-D tomosynthesis images were obtained and synthetic 2-D images were generated. CAD analysis was submitted and interpreted. COMPARISON: Comparison to multiple prior studies sequentially, with oldest reviewed study dated 06/2019. BREAST PARENCHYMAL COMPOSITION: Not dense: There are scattered areas of fibroglandular density. FINDINGS: There is no evidence of suspicious mass, calcification, or architectural distortion to sugg est malignancy in either breast. There has been no suspicious interval change. IMPRESSION: 1. No mammographic evidence of malignancy. 2. Recommend routine screening mammography in one year. BI-RADS Category 1: Negative Reviewed, dictated and finalized at location A.
== END 2025-03-19 09:02 | disposition home or self-care (01) ==
LOC: MICIMG 09:20
PROVIDERS: PCP Internal Medicine; Visit Provider Obstetrics & Gynecology Gynecology
DX: Z12.31 Encounter for screening mammogram for malignant neoplasm of breast (principal)
CPT/HCPCS: 77063; 77067

== ENCOUNTER 2025-08-05 08:32 | Outpatient (CLI) | payer OTHER, SELFPAY ==
--- NOTE | ~2025-08-05 | CT_ITS ---
EXAMINATION:CT lung screening DATE: 08/05/2025 09:05 INDICATION: Tobacco use. TECHNIQUE: Computed tomography (CT) of the chest was performed without intravenous contrast. Automated exposure control and iterative reconstruction technique were employed. The dose-length product (DLP) was 181.95 mGy-cm. COMPARISON: CT abdomen and pelvis 05/23/2022 FINDINGS: The lungs demonstrate mild atelectasis. No pleural effusion. The heart size is normal. There are coronary artery calcifications. No pericardial effusion. There is severe cervical spondylosis and moderate thoracic spondylosis. IMPRESSION: 1. Lung-RADS category 1: Negative. Continue annual screening with noncontrast low-dose chest CT in 12 months. Reviewed, dictated and finalized at location E. IMPRESSION: 1. Lung-RADS category 1: Negative. Continue annual screening with noncontrast l ow-dose chest CT in 12 months.
--- NOTE | ~2025-08-05 | CT_ITS ---
EXAMINATION: CT abdomen pelvis w con DATE: 08/05/2025 09:08 INDICATION: Unspecified abdominal pain. TECHNIQUE: Computed tomography (CT) of the abdomen and pelvis was performed with 100 mL Omnipaque 350 intravenous contrast. Automated exposure control and iterative reconstruction technique were employed. The dose-length product was 1050.00 mGy-cm. COMPARISON: CT abdomen and pelvis 05/23/2022 FINDINGS: The visualized portions of the lung bases demonstrate mild atelectasis. No pleural effusion. The heart size is normal. There are coronary artery calcifications. No pericardial effusion. The liver, gallbladder, spleen, pancreas, adrenal glands, and right kidney are normal. There is mild left h ydronephrosis. There are greater than 10 stones in left kidney and left renal pelvis measuring up to 9 mm. There is fat stranding around the left renal pelvis. There is diverticulosis of the colon without evidence of diverticulitis. The appendix is normal. There is an infraumbilical ventral hernia containing nonobstructed small bowel and the appendix. There are no pathologically enlarged lymph nodes. There is no free intraperitoneal fluid. There is moderate thoracic and lumbar spondylosis. IMPRESSION: 1. Stones in the left kidney and left renal pelvis with pyelitis and mild hydronephrosis. 2. Infraumbilical ventral hernia containing nonobstructed small bowel and appendix. Reviewed, dictated and finalized at location E. IMPRESSION: 1. Stones in the left kidney and left renal pelvis with pyelitis and mild hydro nephrosis. 2. Infraumbilical ventral hernia containing nonobstructed small bowel and appen geo.
--- OUTSIDE RECORDS SUMMARY | 2025-08-05 08:37 | XMS_ITS | Clinical Summary ---
Author Organization [facility] Address [address] [place] [id number] Care Team Providers Care Artists' Booking Representative Name Role Phone AnuradhaParth allan Primary Care Provider Allergies Active Allergy Reactions Criticality Noted Date Comments Penicillins Hives,Rash Medium 08/08/2023 Sulfa Rash Medium 08/08/2023 Tetracycline Hives,Rash Medium 08/08/2023 Medications estradioL (CLIMARA) 0.05 mg/24 hr 1 patch once a week 3 Active ergocalciferol (VITAMIN D) 50,000 unit capsule Take 1 capsule (50,000 Units total) by mouth once a week Active albuterol HFA (PROVENTIL HFA,VENTOLIN HFA,PROAIR HFA) 90 mcg/actuation inhaler INHALE 1 PUFF BY MOUTH EVERY 4 HOURS NEEDED FOR SHORTNESS OF BREATH OR WHEEZING 3 Active Pulmicort Flexhaler 180 mcg/actuation inhaler 3 Active Active Problems No known active problems Encounters Date Type Department Care Team Description 07/20/2025 Telephone [facility] Specialty Services [address] [place] [address] Radha Jaramillo, RN GI Preprocedure from Last 3 Months Surgical History Surgery Date Site/Laterality Comments HYSTERECTOMY Medical History Medical History Date Comments COPD (chronic obstructive pulmonary disease) Social History Tobacco Use Types Packs/Day Years Used Date Smoking Tobacco: Every Day Cigarettes Tobacco Cessation:Ready to Q uit: Not Asked; Counseling Given: Not Answered Personal Safety Answer Date Recorded Getting School Help Needed Not on file 12/21 Comments Unknown Sex and Gender Information Value Date Recorded Sex Assigned at Not on file Legal Sex Female 4:32 PM [employer] Gender Identity Not on file Sexual Orientation Not on file Obstetrics History Last Filed Vital Signs Vital Sign Reading Time Taken Comments Blood Pressure 148/105 08/08/2023 8:33 AM CDT Pulse 127 08/08/2023 8:33 AM CDT Temperature 36.6 C (97.9 F) 08/08/2023 8:33 AM CDT Respiratory Rate - - Oxygen Saturation 98% 08/08/2023 8:33 AM CDT Inhaled Oxygen Concentration - - Weight 85.7 kg (189 lb) 08/08/2023 8:33 AM CDT Height 154.9 cm (5' 1) 08/08/2023 8:33 AM CDT Body Mass Index 35.71 08/08/2023 8:33 AM CDT Plan of Treatment Health Maintenance Due Date Last Done Comments Breast Cancer Screening-Mammogram 1965 Colon Cancer Screening-Colonoscopy 1965 Depression Screening 1965 Hepatitis C Screening 1965 DTaP/Tdap/Td Vaccine (1 - Tdap) 1978 Hepatitis B Screening 1985 Regular Well Visit/Exam 18-64 1985 Pneumococcal vaccine <65 (1 of 2 - PCV) 1986 Zoster Vaccine (1 of 2) 2017 Covid-19 Vaccine (5 - 2024-2 6 season) 2025 11/02/2021, 01/30/2021, 01/08/2021, Additional history exists Influenza Vaccine (#1) 2025 , 08/03/2020, 08/11/2019, Additional history exists Insurance [employer] Member Subscriber Plan / Payer (Ef fective 2022-Present) Name:Maria Elena Harris Member ID:[id number] Relation to Subscriber:Self Name:Maria Elena Harris Subscriber ID:[id number] Payer ID:[id number] (NAIC) Type:[employer] Address: [address] [employer] Care Teams Artists' Booking Representative Relationship Specialty Start Date End Date Parth Tapia DO PCP - General Internal Medicine 04/24/23
== END 2025-08-05 08:33 | disposition home or self-care (01) ==
PROVIDERS: PCP Internal Medicine; Visit Provider Clinical Nurse Specialist
DX: N20.0 Calculus of kidney (principal); Z12.2 Encounter for screening for malignant neoplasm of respiratory organs; Z87.891 Personal history of nicotine dependence; N28.84 Pyelitis cystica; N13.30 Unspecified hydronephrosis; K43.9 Ventral hernia without obstruction or gangrene
CPT/HCPCS: 71271; 74177; Q9967

== ENCOUNTER 2025-08-05 16:58 | Emergency (ER) | payer OTHER, SELFPAY ==
[2025-08-05] VITALS (11 sets, daily range): BP systolic 148–167; BP diastolic 86–111; PULSE 98–123; RESP 11–23; TEMP 36.8; O2SAT 95–100
--- NOTE | 2025-08-05 17:27 | ED_ITS ---
HPI - Recheck/Abnormal Lab/Rx General Chief Complaint: Recheck/Abnormal Lab/Rx Stated Complaint: ct scan this morning dr called and said er Time Seen by Provider: 08/05/25 17:03 Source: patient Mode of arrival: ambulatory Limitations: no limitations History of Present Illness HPI narrative: Patient is a 59-year-old female who presents the ED with report of abnormal outpatient CT scan. Patient reports over the past 5 months, she has been having issues with gas pain, bloating, constipation. Has been following with her PCP for this. Had a urinalysis performed in the PCP office last week and was told there was microscopic blood. She was sent for a CT of her abdomen/pelvis today, which she states showed kidney stones and left-sided pyelitis. She was referred to the ED for further evaluation. Patient denies any current abdominal or flank pain. Denies dysuria, urinary frequency, urinary urgency, nausea, vomiting, fevers. Denies ever passing a kidney stone before. Related Data Home Medications ?Medication ?Instructions ?Recorded ?Confirmed ?Last Taken ?Type ergocalciferol (vitamin D2) 1,250 50,000 unit PO WEEKL Y 05/10/22 07/18/25 Unknown History mcg (50,000 unit) capsule Allergies Allergy/AdvReac Type Severity Reaction Status Date / Time Penicillins Allergy Severe Rash Verified 07/18/25 08:19 Cephalosporins Allergy Mild Rash Verified 07/18/25 08:19 Sulfa (Sulfonamide Allergy Mild Rash Verified 07/18/25 08:19 Antibiotics) tetracycline Allergy Mild Rash Verified 07/18/25 08:19 Review of Systems 2 Review of Systems: All systems reviewed & are unremarkable except as noted in HPI. All systems reviewed & are unremarkable except as noted in HPI and below PMFSH Past Medical History Medical History Encounter to establish care Skin lesion Cough Bronchitis Post-op pain Numbness of fingers Left hip pain Nephrolithiasis Hematuria Abdominal hernia Incisional hernia Sore in nose Ear fullness Acute sinusitis Hyperglycemia Elevated blood pressure reading History of asthma Headache Allergies Fibroid tumor Surgical History Surgical History H/O: hysterectomy May 2021 H/O laparoscopy 1985 History of tubal ligation 1998 Family History Family History Mother Prediabetes Father Hypertension Grandparent Diabetes mellitus Cerebrovascular accident Ulcer Social History Social History Smoking packs per day: 1 Smoking cigarettes per day: 20.0 Years smoked: 35 Smoking pack-years: 35.00 Smoking status: Current every day smoker Tobacco type: cigarettes Second hand tobacco smoke exposure: No Alcohol intake: never Substance use: never Substance use type: does not use Do You Feel Safe in your Home?: Yes Lack of Food: Never True Current Housing: I Have Housing Concerned About Future Housing: No Difficulty Paying Gas/Electric Bills: No Difficulty Paying for Meds: No Currently Unemployed: No Education: High School Diploma/GED Difficulty w/ Childcare or Family Care: No Living arrangements: with family Occupation/Education: occupation Gender identity (if verbalized by the patient): Female Spiritual care concerns: No Exam 2 Narrative: GENERAL: Well appearing, obese with BMI of 36.4, non-toxic, in no acute distress. HEAD: Normocephalic, atraumatic. RESPIRATORY: Airway patent, respirations nonlabored. Clear to auscultation bilaterally, no rales, rhonchi, wheezing. CARDIOVASCULAR: Tachycardic with regular rhythm without murmurs, rubs, or gallops. ABDOMINAL: Soft, nontender, nondistended. Normoactive BS. No CVA tenderness MUSCULOSKELETAL: Moves all extremities. No gross deformities. SKIN: Warm, dry, normal color. NEURO: A&O X3. Speech clear. Cranial nerves II-XII grossly intact. Steady gait. No ataxic movements. PSYCHIATRIC: Appropriate mood and affect. Normal interaction. Course Vital Signs Vital signs: Vital Signs Pulse Oximetry 98 08/05/25 17:04 Temperature 98.3 F 08/05/25 17:18 Pulse Rate 98 08/05/25 19:31 Respiratory Rate 12 08/05/25 19:31 Blood Pressure 150/86 H 08/05/25 19:31 Pulse Oximetry 97 08/05/25 19:31 Oxygen Delivery Room Air 08/05/25 17:18 MDM - Recheck/Abnormal Lab/Rx MDM Narrative Medical decision making narrative: CT scan of the abdomen/pelvis today showing multiple left-sided renal stones, >10 stones, up to 9 mm. Shows fat stranding around the left renal pelvis consistent with pyelitis, mild hydronephrosis. Patient currently asymptomatic regarding this. Denying any pain whatsoever. She was tachycardic upon arrival to the ED but slightly anxious appearing. Fluids given. Heart rate did normalize and respond appropriately to fluid administration. Laboratory studies with possible hemoconcentration. No leukocytosis. Fluids ongoing. CMP is unremarkable. Kidney function is stable. Lactic acid within normal range. UA with 21-50 RBC, no signs of infection. Discussed case with Urology, Dr. Barksdale, agreed with plan for outpatient stone management. No evidence of sepsis or acute obstruction at this time to suggest need for inpatient management. Discussed this recommendation with patient. She has previously seen Dr. Akers with urology. She is in agreement with plan for outpatient follow-up. Given strict return precautions. She voiced understanding. Discharged in stable condition. Medical Records Attestation: I reviewed the patient's medical records. Lab Data Attestation: I reviewed the patient's lab results. 08/05/25 17:30 08/05/25 17:30 Labs: Lab Results 08/05/25 08/05/25 Range/Units 17:30 18:23 WBC 9.1 (4.5-10.0) K/mm3 RBC 5.51 H (4.2-5.4) M/mm3 Hgb 16.1 H D (12.0-15.0) g/dL Hct 48.3 H (37.0-47.0) % MCV 87.7 (80-100) fl MCH 29.2 (26-34) pg MCHC 33.3 (32-36) g/dl RDW 13.8 (11.5-14.5) % Plt Count 328 (150-375) k/mm3 MPV 8.9 (7.4-10.4) fl Immature Gran % (Auto) 0.8 H (0-0.5) % Neut % (Auto) 56.5 (45.5-73.1) % Lymph % (Auto) 31.5 (18.3-44.2) % Citrus % (Auto) 7.3 (2.6-8.5) % Eos % (Auto) 3.2 (0-4.4) % Baso % (Auto) 0.7 (0.2-1.2) % Lymph # (Auto) 2.86 (0.9-3.2) K/mm3 Citrus # (Auto) 0.7 H (0.1-0.6) K/mm3 Eos # (Auto) 0.3 (0-0.3) K/mm3 Baso # (Auto) 0.1 (0.0-0.1) K/mm3 Abs Immat Gran (auto) 0.07 H (0.00-0.031) K/mm3 Absolute Neuts (auto) 5.2 (1.3-6.7) K/mm3 Absolute Nucleated RBC 0.000 (0.0-0.012) K/mm3 Nucleated RBC % 0.0 (0.0-0.2) % Sodium 138 (137-145) mmol/L Potassium 4.1 (3.4-5.0) mmol/L Chloride 109 H (98-107) mmol/L Carbon Dioxide 23 (22-30) mmol/L Anion Gap 6 (4-12) mmol/L BUN 12 D (7-17) mg/dL Creatinine 0.78 (0.7-1.0) mg/dL Estim Creat Clear Calc 69 ml/min Estimated GFR > 60 (59 - ) Glucose 99 (65-110) mg/dL Lactic Acid 1.9 (0.7-2.0) mmol/L Calcium 9.8 (8.4-10.2) mg/dL Total Bilirubin 0.3 (0.2-1.3) mg/dL AST 22 (14-36) U/L ALT 25 (6-35) U/L Alkaline Phosphatase 92 (38-126) U/L Total Protein 6.8 (6.3-8.2) g/dL Albumin 4.0 (3.5-5.1) g/dL Urine Color Yellow (Yellow) Urine Appearance Clear (Clear) Urine pH 6.5 (5.0-9.0) Ur Specific [place] 1.007 (1.001-1.035) Urine Protein Negative (Negative) mg/dL Urine Glucose (UA) Negative (Negative) mg/dL Urine Ketones Negative (Negative) mg/dL Ur Blood (Man) 3+ H (Negative) Urine Nitrate Negative (Negative) Urine Bilirubin Negative (Negative) Urine Urobilinogen 0.2 (<2.0) mg/dL Leukocyte Esterase Rfl Trace H (Negative) PEG/UL Urine RBC 21-50 H (0-2) /hpf Urine WBC 0-5 (0-3) /hpf Ur Squamous Epith Cells None seen (Few) /hpf Urine Bacteria None seen /hpf Urine Casts 0-2 Imaging Data Attestation: I personally reviewed and interpreted this imaging study as follows: Radiologist's impression: EXAMINATION: CT abdomen pelvis w con DATE: 08/05/2025 09:08 INDICATION: Unspecified abdominal pain. TECHNIQUE: Computed tomography (CT) of the abdomen and pelvis was performed with 100 mL Omnipaque 350 intravenous contrast. Automated exposure control and iterative reconstruction technique were employed. The dose-length product was 1050.00 mGy-cm. COMPARISON: CT abdomen and pelvis 05/23/2022 FINDINGS: The visualized portions of the lung bases demonstrate mild atelectasis. No pleural effusion. The heart size is normal. There are coronary artery calcifications. No pericardial effusion. The liver, gallbladder, spleen, pancreas, adrenal glands, and right kidney are normal. There is mild left hydronephrosis. There are greater than 10 stones in left kidney and left renal pelvis measuring up to 9 mm. There is fat stranding around the left renal pelvis. There is diverticulosis of the colon without evidence of diverticulitis. The appendix is normal. There is an infraumbilical ventral hernia containing nonobstructed small bowel and the appendix. There are no pathologically enlarged lymph nodes. There is no free intraperitoneal fluid. There is moderate thoracic and lumbar spondylosis. IMPRESSION: 1. Stones in the left kidney and left renal pelvis with pyelitis and mild hydronephrosis. 2. Infraumbilical ventral hernia containing nonobstructed small bowel and appendix. Discharge Plan Discharge Clinical Impression: Kidney stone on left side, Pyelitis, Asymptomatic microscopic hematuria Patient Disposition: Home Condition: Stable Instructions: Antibiotic Form, Kidney Stones (ED) Additional Instructions: You will need to follow-up with urology for further evaluation of kidney stones. Call office Friday morning to make appointment. Stay well-hydrated. Return to the ED if you experience severe abdominal pain, severe back pain, difficulty urinating, significant pain with urination, unable to keep down food or drink, persistent fevers or any other symptoms of concern. Patient Language: Andorran Prescriptions: No Action ergocalciferol (vitamin D2) 1,250 mcg (50,000 unit) capsule 50,000 unit PO WEEKLY omeprazole 20 mg capsule,delayed release(DR/EC) 20 mg PO DAILY 28 Days Qty: 28 0RF Pulmicort Flexhaler 180 mcg/actuation aerosol powdr breath activated 2 inh INHALATION BID Qty: 360 1RF losartan 25 mg tablet 25 mg PO DAILY Qty: 90 1RF albuterol sulfate 90 mcg/actuation HFA aerosol inhaler 1 inh inhalation Q4H PRN (Reason: shortness of breath or wheezing) Qty: 18 1RF Follow-up/Referrals: Prabhu Barksdale MD [Physician, Urology] Referral Note: UROLOGY Parth Tapia DO [Primary Care Provider, Internal Medicine] Time of Disposition: 19:33
[2025-08-05] MEDS: SODIUM CHLORIDE 0.9% IV 1,000 ML 999 ML IV CONT (17:31)
[2025-08-05 17:36] LABS: Hematocrit 48.3 % (37.0-47.0); Hemoglobin 16.1 g/dL (12.0-15.0); Immature Granulocyte Percent A 0.8 % (0-0.5); Lymphocytes Absolute Auto 2.86 K/mm3 (0.9-3.2); Mean Corpuscular HGB Conc 33.3 g/dl (32-36); Mean Corpuscular Hemoglobin 29.2 pg (26-34); Mean Corpuscular Volume 87.7 fl (80-100); Nucleated Red Blood Cells Absolute Auto 0.000 K/mm3 (0.0-0.012); Nucleated Red Blood Cells Perc 0.0 % (0.0-0.2); Platelet Count Result 328 k/mm3 (150-375); Red Blood Count 5.51 M/mm3 (4.2-5.4); White Blood Count 9.1 K/mm3 (4.5-10.0)
[2025-08-05 17:58] LABS: Alanine Aminotransferase 25 U/L (6-35); Albumin Level 4.0 g/dL (3.5-5.1); Alkaline Phosphatase 92 U/L (38-126); Anion Gap 6 mmol/L (4-12); Aspartate Amino Transferase 22 U/L (14-36); Bilirubin,Total 0.3 mg/dL (0.2-1.3); Blood Urea Nitrogen 12 mg/dL (7-17); Calcium 9.8 mg/dL (8.4-10.2); Carbon Dioxide 23 mmol/L (22-30); Chloride 109 mmol/L (98-107); Estimated CRCL calculation 69 ml/min; Estimated Glomerular Filt Rate > 60; Glucose 99 mg/dL (65-110); Potassium 4.1 mmol/L (3.4-5.0); Sodium 138 mmol/L (137-145); Total Protein 6.8 g/dL (6.3-8.2)
[2025-08-05 18:34] LABS: Add Urine Microscopic? YES; Appearance Urine Clear (Clear); Glucose Urine UA Negative (Negative); Leukocyte Esterase Ur Trace LEU/UL (Negative); Nitrate Urine Negative (Negative); Non Pathogenic Casts 0-2; Specific Grav Ur 1.007 (1.001-1.035)
== END 2025-08-05 19:57 | disposition home or self-care (01) ==
PROVIDERS: Emergency Provider Physician Assistant; PCP Internal Medicine
DX: N13.2 Hydronephrosis with renal and ureteral calculous obstruction (principal); N12 Tubulo-interstitial nephritis, not specified as acute or chronic; R31.29 Other microscopic hematuria; J45.909 Unspecified asthma, uncomplicated; F17.210 Nicotine dependence, cigarettes, uncomplicated; Z87.442 Personal history of urinary calculi; Z90.710 Acquired absence of both cervix and uterus
CPT/HCPCS: 36415; 71271; 74177; 80053; 81001; 83605; 85025; 96360; 99283; J7030; Q9967

== ENCOUNTER 2025-08-23 08:47 | Outpatient (CLI) | payer OTHER, SELFPAY ==
--- OUTSIDE RECORDS SUMMARY | 2025-08-22 14:40 | XMS_ITS | Encounter Summary ---
Author Organization [facility] Address [address] [place] [address] Phone Care Team Providers Care Business Continuity Consultant Name Role Phone Parth Tapia DO Primary Care Provider Reason for Visit * Reason Comments Nephrolithiasis * Consultation (Routine) - Authorized Specialty Diagnoses / Procedures Referred By Luh baldwin Referred To Contact Urology Diagnoses Nephrolithiasis Parth Tapia DO [address] [facility] [place] [address] Phone: tel: fax: [facility] (All Locations) Referral ID Status Reason Start Date Expiration Date Visits Requested Visits Authorized [id number] Authorized Specialty Services Required 09/10/2026 99 99 Encounter Details Date Type Department Care Team (Late st Contact Info) Description 08/22/2025 2:40 PM CDT Office Visit [facility] ([facility]) - [facility] [address] [facility] 11th [place] [address] [place] [phone] Dc Urena MD [address] 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 Gender Identity Not on file Sexual Orientation Not on file documented as of this encounter Last Filed Vital Signs Vital Sign Reading Time Taken Comments Blood Pressure 146/102 08/22/2025 3:07 PM CDT Pulse 89 08/22/2025 3:07 PM CDT Temperature - - Respiratory Rate - - Oxygen Saturation - - Inhaled Oxygen Concentration - - Weight 80.7 kg (178 lb) 08/22/2025 3:07 PM CDT Height - - Body Mass Index 33.63 08/08/2023 8:33 AM CDT documented in this encounter Progress Notes * Dc Urena MD - 08/22/2025 2:40 PM CDT Chief Complaint: nephrolithiasis History of Present Illness: I was requested to see Maria Elena Harris for evaluation of nephrolithiasis by Parth Tapia, *. Maria Elena Harris is a 59 y.o. female - CT at [facility] 08/05/2025 done for microhematuria, abdominal discomfort showed > 10 stones in the L kidney and L renal pelvis measuring up to 9 mm, fat stranding around L renal pelvis. Normal right kidney. - was told by her PCP to go to the ER after the CT due to concern for pyelitis. Evaluation reportedly showed no UTI. - denies h/o stone treatment. Was seen for 2 small L renal stones in 2021. Saw Dr. Akers. Was advised elective treatment if she became symptomatic. - saw [facility]. Presents for second opinion. - denies ever having UTI - denies anticoagulation - denies hematuria, flank pain. - works as legal word processor PMH: HTN Asthma Past Surgical History: Procedure Laterality Date HYSTERECTOMY Current Outpatient Medications Medication Sig Dispense Refill losartan (COZAAR) 25 mg tablet Take 1 tablet (25 mg total) by mouth omeprazole (PriLOSEC) 20 mg capsule Take 1 capsule (20 mg total) by mouth daily albuterol HFA (PROVENTIL HFA,VENTOLIN HFA,PROAIR HFA) 90 mcg/actuation inhaler INHALE 1 PUFF BY MOUTH EVERY 4 HOURS NEEDED FOR SHORTNESS OF BREATH OR WHEEZING ergocalciferol (VITAMIN D) 50,000 unit capsule Take 1 capsule (50,000 Units total) by mouth once a week estradioL (CLIMARA) 0.05 mg/24 hr 1 patch once a week (Patient not taking: Reported on 08/22/2025) Pulmicort Flexhaler 180 mcg/actuation inhaler No current facility-administered medications for this visit. Allergies Allergen Reactions Penicillins Hives and Rash Cephalosporins Rash Sulfa Rash Tetracycline Hives and Rash No family history on file. Physical Exam: Vitals: 08/22/25 1507 BP: (!) 146/102 Pulse: 89 Weight: 80.7 kg (178 lb) Estimated body mass index is 33.63 kg/m?? as calculated from the following: Height as of 08/08/23: 154.9 cm (5' 1). Weight as of this encounter: 80.7 kg (178 lb). Constitutional: no acute distress Respiratory: No coarse breath sounds or wheezing, breathing symmetric I have independently reviewed all labs, radiologic tests, and diagnostic tests documented in this note. Assessment and Plan: Maria Elena Harris is a 59 y.o. female with nephrolithiasis - reviewed CT images 08/05/2025, showing numerous L renal pelvis and lower pole small stones total about 3 cm, no significant hydronephrosis. No stones on right side. CT 04/2022 showed two small L interpolar renal stones. - discussed stone growth within the past 3 years with significant stone burden. - discussed symptoms of stone passage and risks. - discussed treatment with L PCNL, staged URS and laser lithotripsy. Patient is undecided at this time but will decide when she schedules surgery. Pamphlets given. Thank you for allowing us to participate in the care of this patient. Please do not hesitate to contact us should you have any questions or concerns at [phone]. documented in this encounter Plan of Treatment Not on file documented as of this encounter Procedures Procedure Name Priority Date/Time Associated Diagnosis Comments POCT URINALYSIS DIPSTICK Routine 08/22/2025 3:22 PM CDT Renal stones documented in this encounter Results * POCT urinalysis dipstick (08/22/2025 3:22 PM CDT) Glucose, ur, POC Negative Negative Bilirubin, ur, POC Negative Negative Ketones, ur, POC Negative Negative Blood, ur, POC Negative Negative pH, ur, POC 5.0 5.0 - 8.0 Protein, ur, POC Negative Negative Nitrite, ur, POC Negative Negative Leukocytes, ur, POC Negative Negative Lot Number 0 Urine 08/22/2025 3:22 PM CDT Dc Urena MD POINT OF CARE TEST ORDERABLES Fi nal Result documented in this encounter Visit Diagnoses Diagnosis Renal stones- Primary documented in this encounter Historical Medications * This list may reflect changes made after this encounter. omeprazole (PriLOSEC) 20 mg capsule Take 1 capsule (20 mg total) by mouth daily 08/12/2025 losartan (COZAAR) 25 mg tablet Take 1 tablet (25 mg total) by mouth 07/25/2025 added in this encounter Orders Outpatient Referral Count Last Ordered Date Fir st Ordered Date AMB REFERRAL TO UROLOGY 1 08/22/2025 documented in this encounter Care Teams Business Continuity Consultant Relationship Specialty Start Date End Date Parth Tapia DO PCP - General Internal Medicine 04/24/23 documented as of this encounter
--- OUTSIDE RECORDS SUMMARY | 2025-08-22 15:30 | XMS_ITS | Encounter Summary ---
Author Organization [facility] Address [address] [place] [address] Care Team Providers Care Enrollment Representative Name Role Phone GarysamantaParthian Primary Care Provider Encounter Details Date Type Department Care Team (Latest Contact Info) Description 08/22/2025 3:30 PM CDT - 08/22/2025 11:59 PM CDT Hospital Encounter [facility] [address] [place] [id number] Arrived Discharge Disposition: Discharge to home or self care Social History Tobacco Use Types Packs/Day Years Used Date Smoking Tobacco: Every Day Cigarettes Comments Unknown Sex and Gender Information Value Date Recorded Sex Assigned at Not on file 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 Gender Identity Not on file Sexual Orientation Not on file documented as of this encounter Medications at Time of Discharge albuterol HFA (PROVENTIL HFA,VENTOLIN HFA,PROAIR HFA) 90 mcg/actuation inhaler INHALE 1 PUFF BY MOUTH EVERY 4 HOURS NEEDED FOR SHORTNESS OF BREATH OR WHEEZING 07/30/2023 ergocalciferol (VITAMIN D) 50,000 unit capsule Take 1 capsule (50,000 Units total) by mouth once a week estradioL (CLIMARA) 0.05 mg/24 hr 1 patch once a week 08/02/2023 losartan (COZAAR) 25 mg tablet Take 1 tablet (25 mg total) by mouth 07/25/2025 omeprazole (PriLOSEC) 20 mg capsule Take 1 capsule (20 mg total) by mouth daily 08/12/2025 Pulmicort Flexhaler 180 mcg/actuation inhaler 06/03/2023 documented as of this encounter Discharge Disposition Disposition Code Departure Means Destination Discharge to home or self care documented in this encounter Plan of Treatment Not on file documented as of this encounter Procedures Procedure Name Priority Date/Time Associated Diagnosis Comments CT BODY OUTSIDE REFERENCE Routine 08/22/2025 3:30 PM CDT documented in this encounter Results * CT Body Outside Reference (08/22/2025 3:30 PM CDT) Impressions RAD_P[facility] - 08/22/2025 3:30 PM CDT These images are for Reference purposes only and have not been reviewed by [facility]. There will be no report generated by a [facility] Radiologist. Narrative RAD_PACS[facility] - 08/22/2025 3:30 PM CDT EXAMINATION: Images For Reference Purposes Only us Dc Urena MD IMG CT PROCEDURES Final Result [facility] documented in this encounter Visit Diagnoses Not on filedocumented in this encounter Care Teams Enrollment Representative Relationship Specialty Start Date End Date Parth Tapia DO PCP - General Internal Medicine 04/24/23 documented as of this encounter
--- OUTSIDE RECORDS SUMMARY | 2025-08-23 09:16 | XMS_ITS | Clinical Summary ---
Author Organization [facility] Address [address] [place] [id number] Care Team Providers Care Food Safety Field Specialist Name Role Phone Parth Tapia DO Primary Care Provider Allergies Active Allergy Reactions Criticality Noted Date Comments Cephalosporins Rash Medium 07/18/2025 Penicillins Hives,Rash High 08/08/2023 Sulfa Rash Medium 07/18/2025 Tetracycline Hives,Rash Medium 08/08/2023 Medications estradioL (CLIMARA) [...] Pulmicort Flexhaler 180 mcg/actuation inhaler 3 Active losartan (COZAAR) 25 mg tablet Take 1 tablet (25 mg total) by mouth 5 Active omeprazole (PriLOSEC) 20 mg capsule Take 1 capsule (20 mg total) by mouth daily 5 Active Active Problems Problem Noted Date Diagnosed Date Abdominal bloating 08/22/2025 Left hip pain 08/22/2025 Abnormal thyroid blood test 08/22/2025 Abnormal uterine bleeding 08/22/2025 Acute sinusitis 08/22/2025 Anemia 08/22/2025 Anxiety about health 08/22/2025 Asymptomatic microscopic hematuria 08/22/2025 Asthma 08/22/2025 Calculus of kidney 08/22/2025 Hypersomnia 08/22/2025 Hypertriglyceridemia 08/22/2025 Impaired fasting glucose 08/22/2025 Encounters Date Type Department Care Team Description 08/22/2025 3:30 PM CDT - 08/22/2025 11:59 PM CDT Hospital Encounter [facility] [address] [place] [address] Arrived Discharge Disposition: Discharge to home or self care 08/22/2025 2:40 PM CDT Office Visit [facility] ([facility]) - 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 Gender Identity Not on file Sexual Orientation Not on file Obstetrics History Last Filed Vital Signs Vital Sign Reading Time Taken Comments Blood Pressure 146/102 08/22/2025 3:07 PM CDT Pulse 89 08/22/2025 3:07 PM CDT Temperature 36.6 C (97.9 F) 08/08/2023 8:33 AM CDT Respiratory Rate - - Oxygen Saturation 98% 08/08/2023 8:33 AM CDT Inhaled Oxygen Concentration - - Weight 80.7 kg (178 lb) 08/22/2025 3:07 PM CDT Height 154.9 cm (5' 1) 08/08/2023 8:33 AM CDT Body Mass Index 33.63 08/08/2023 8:33 AM CDT Plan of Treatment Health Maintenance Due Date Last Done Comments Breast Cancer Screening-Mammogram 1967 Colon Cancer Screening-Colonoscopy 1967 Depression Screening 1967 Hepatitis C Screening 1967 DTaP/Tdap/Td Vaccine (1 - Tdap) 1978 Hepatitis B Screening 1985 Regular Well Visit/Exam 18-64 1985 Pneumococcal vaccine <65 (1 of 2 - PCV) 1986 Zoster Vaccine (1 of 2) 2017 Covid-19 Vaccine (4 - 2024-2 6 season) 2025 11/02/2021, 01/30/2021, 01/08/2021 Influenza Vaccine (#1) 2025 2, 08/03/2020, 08/11/2019, Additional history exists Procedures Procedure Name Priority Date/Time Associated Diagnosis Comments CT BODY OUTSIDE REFERENCE Routine 08/22/2025 3:30 PM CDT POCT URINALYSIS DIPSTICK Routine 08/22/2025 3:22 PM CDT Renal stones from Last 3 Months Results * CT Body Outside Reference (08/22/2025 3:30 PM CDT) Impressions RAD_PACS[facility] - 08/22/2025 3:30 PM CDT These images are for Reference purposes only and have not been reviewed by [facility]. There will be no report generated by a [facility] Radiologist. Narrative [facility] - 08/22/2025 3:30 PM CDT EXAMINATION: Images For Reference Purposes Only Dc Urena MD [facility] CT PROCEDURES Final Result [facility] * POCT urinalysis dipstick (08/22/2025 3:22 PM [...] OF CARE TEST ORDERABLES Fi nal Result from Last 3 Months Insurance [facility] [employer] OOS Member Subscriber Plan / Payer (Ef fective 2022-Present) Name:HarrisMaria Elena Member ID:[id number] Relation to Subscriber:Self Name:Steven Maria Elena Subscriber ID:[id number] Payer ID:[id number] (NAIC) Type: JESUS Address: [address] [place] [id number] [facility] [employer] ACCESS OOS Care Teams Food Safety Field Specialist Relationship Specialty Start Date End Date Parth Tapia DO PCP - General Internal Medicine 04/24/23
[2025-09-07 12:35] VITALS: BMI 33.6
--- NOTE | 2025-09-07 12:35 | P.SLEEP_ITS ---
Sleep Study - Home Unattended Date of Study: 08/23/25 Ordering Provider: Naomie Campbell APRN Interpreting Provider: Polly Richard, DO Home Sleep Study Type: Watch PAT Height: 1.55 m Weight: 80.739 kg Body Mass Index: 33.6 Neck Circumference (inches): 16 Glidden: 7 Reason for Sleep Study Snoring, daytime hypersomnia Sleep History The patient is a 59-year-old female that had a sleep study ordered by her [facility] for evaluation of sleep apnea. The patient admits to snoring loudly and excessive daytime sleepiness. She denies having interruptions in breathing while asleep. She denies choking or gasping at night. She denies having trouble breathing on her back. She does have morning headaches. She denies having a dry or sore mouth / throat in the morning. She denies nocturnal heartburn. She denies nocturia. She denies having difficulty falling or staying asleep. She denies having difficulty returning to sleep if she wakes up throughout the night. She denies any hypnotic or sedative use. She denies feeling anxious about sleep. She does feel tired or sleepy during the day. She does feel tired in the morning. She denies having the urge to fall asleep during the day. She does feel drowsy while driving. She denies sleep paralysis, cataplexy and hypnagogic/ hypnopompic hallucinations. She denies clenching or grinding her teeth. She denies kicking or jerking her legs excessively. She denies having a restless feeling in her legs. She goes to bed at 12:30 a.m. on work days and at 1:00 a.m. on her days off. It takes her 15 minutes to fall asleep. She gets 6 hours of sleep on work days and 9 hours on her days off. Her sleep is much more restorative on days off. She denies taking any planned naps. She denies dream enactment behavior. She denies sleep walking. She denies consuming any caffeinated beverages throughout the day. She smokes 6-20 cigarettes per day. She denies alcohol use. She exercises 1-2 nights per week. [facility] Past Medical History Medical History Encounter to establish care Skin lesion Cough Bronchitis Post-op pain Numbness of fingers Left hip pain Nephrolithiasis Hematuria Abdominal hernia Incisional hernia Sore in nose Ear fullness Acute sinusitis Hyperglycemia Elevated blood pressure reading History of asthma Headache Allergies Fibroid tumor Surgical History Surgical History H/O: hysterectomy May 2021 H/O laparoscopy 1985 History of tubal ligation 1998 Family History Family History Mother Prediabetes Father Hypertension Grandparent Diabetes mellitus Cerebrovascular accident Ulcer Social History Social History Smoking packs per day: 1 Smoking cigarettes per day: 20.0 Years smoked: 35 Smoking pack-years: 35.00 Smoking status: Current every day smoker Tobacco type: cigarettes Second hand tobacco smoke exposure: No Alcohol intake: never Substance use: never Substance use type: does not use Do You Feel Safe in your Home?: Yes Lack of Food: Never True Current Housing: I Have Housing Concerned About Future Housing: No Difficulty Paying Gas/Electric Bills: No Difficulty Paying for Meds: No Currently Unemployed: No Education: High School Diploma/GED Difficulty w/ Childcare or Family Care: No Living arrangements: with family Occupation/Education: occupation Gender identity (if verbalized by the patient): Female Spiritual care concerns: No Medications Home Medications ?Medication ?Instructions ?Recorded ?Confirmed ?Type budesonide 180 mcg/actuation 2 inh inhalation BID #360 06/17/24 07/18/25 Rx breath activated powder inhaler inhalations (Pulmicort Flexhaler) albuterol sulfate 90 mcg/actuation 1 inh inhalation Q4 H PRN shortness 07/25/25 Rx aerosol inhaler of breath or wheezing #18 gr ams losartan 25 mg tablet 25 mg PO DAILY #90 tabs 06/28 07/21 Rx ciprofloxacin HCl 500 mg tablet 500 mg PO Q12H #10 tab s 08/08/25 Rx (Cipro) ergocalciferol (vitamin D2) 1,250 50,000 unit PO WEEKL Y #8 caps 08/08/25 Rx mcg (50,000 unit) capsule omeprazole 20 mg capsule,delayed 20 mg PO DAILY #90 ca ps 08/12/25 Rx release Sleep Procedure The sleep study was completed using ThumbplayT a technically adequate device with seven channels: peripheral arterial tone, actigraphy, body position, snore, respiratory movement, pulse oximetry, sleep staging, and heart rate. Prior to using the device, the patient received verbal and written instructions for its application and was provided with the help desk phone number for additional telephonic instruction with 24-hour availability of qualified personnel to answer questions. The study was scored using CMS guidelines. Sleep Architecture The total recording time is 6 hrs, 0 min. The total sleep time is 5 hrs, 22 min. Sleep latency is 20 minutes. REM latency is 26 minutes. The patient had 1 episodes of waking. Sleep architecture shows 22.5% deep sleep, 50.9% light sleep, and (as % Total Sleep Time) showed NREM (Light 50.9%; Deep 22.5%), and a 26.7% stage REM. The patient spent 100.0% of total sleep time in the supine position. Sleep efficiency was 89.44. Respiratory Analysis The overall AHI (pAHI 4%:) is 6.2. The overall AHI (pAHI 3%:) is 10.8. The central AHI is 0.0. The AHI was 3.7 in NREM and 29.5 in REM sleep. The AHI was 10.8 in Supine and N/A in Non-supine sleep. Percent of Gustavo Selby respirations is 0.0. Oximetry Data The oxygen desaturation index (DENISE 4%:) is 5.4. The mean saturation is 91%, and the lowest saturation is 83%. Time spent with saturation < 88% is 15.2 minutes. Snoring Profile Snoring average intensity is 45 dB. The patient snored above 45 decibels for 123.4 minutes, 38.3% of sleep time. Cardiac Profile The average pulse rate is 95 beats per minutes. The lowest pulse rate is 77 bpm. The highest pulse rate reported is 111 bpm. Atrial fibrillation was not detected. Premature beats occur <0.1 per minute. Assessment and Plan Assessment and Plan (1) YOSHI (obstructive sleep apnea): Code(s): G47.33 - Obstructive sleep apnea (adult) (pediatric) Status: Acute Assessment and Plan: The patient had an overall AHI of 6.2 with desaturation down to 83%. This is consistent with mild sleep apnea. Due to the patient's hypertension, she qualifies for treatment. I recommend that the patient be prescribed AutoPAP 5-15 cm H2O, CPAP mask/filters/tubing and heated humidity. A mandibular advancement device is also an acceptable treatment option. This should be used with all episodes of sleep.? Compliance should be reviewed within 31-90 days of starting therapy for usage greater than 4 hours per night greater than 70% of the nights. The patient should be asked about symptoms such as?excessive daytime sleepiness, quality of sleep, decreased nocturia, increased?mental functioning such as memory, mood, and concentration. Data The data obtained during this sleep study is adequate for interpretation. Certification This sleep study has been reviewed by a board certified sleep medicine physician.
== END 2025-08-29 12:54 | disposition home or self-care (01) ==
PROVIDERS: PCP Internal Medicine; Visit Provider Clinical Nurse Specialist
DX: G47.33 Obstructive sleep apnea (adult) (pediatric) (principal)
CPT/HCPCS: 95800